=== PATIENT | female | born 1980 | race Caucasian/White ===

== ENCOUNTER 2018-08-22 12:31 | Emergency (ER) | payer OTHER ==
[2018-08-22 14:12] VITALS: BP 101/68
--- NOTE | 2018-08-22 14:41 | UC ---
Skin Complaint HPI - HPI Summary HPI Summary: 37-year-old woman comes in with a chief complaint of a tick bite to the right upper thoracic back. I week ago she felt something there and pulled it off and realized that it was a tick. The area is not healing very well she is wondering if it's a foreign body left in there. She is breast-feeding. No fevers or chills feels well otherwise. - History of Current Complaint Chief Complaint: UCSkin Time Seen by Provider: 08/22/18 14:27 Stated Complaint: TICK BITE Hx Last Menstrual Period: 05/03/12 Pain Intensity: 0 - Allergy/Home Medications Allergies/Adverse Reactions: Allergies Allergy/AdvReac Type Severity Reaction Status Date / Time nickel Allergy Rash And Verified 08/22/18 14:12 Itching Sulfa (Sulfonamide AdvReac Severe Stomach Verified 08/22/18 14:12 Antibiotics) Cramps PMH/Surg Hx/FS Hx/Imm Hx Previously Healthy: Yes - Surgical History Surgical History: Yes Surgery Procedure, Year, and Place: dental implant - Family History Known Family History: Positive: Non-Contributory - Social History Alcohol Use: None Substance Use Type: None Smoking Status (MU): Never Smoked Tobacco Have You Smoked in the Last Year: No - Immunization History Most Recent Influenza Vaccination: fall 2017 Most Recent Tetanus Shot: 07/07/15 Most Recent Pneumonia Vaccination: never Review of Systems All Other Systems Reviewed And Are Negative: Yes Constitutional: Positive: Negative Skin: Positive: Other - SEE HPI Eyes: Positive: Negative ENT: Positive: Negative Respiratory: Positive: Negative Cardiovascular: Positive: Negative Gastrointestinal: Positive: Negative Motor: Positive: Negative Neurovascular: Positive: Negative Musculoskeletal: Positive: Negative Neurological: Positive: Negative Psychological: Positive: Negative Is Patient Immunocompromised?: No Physical Exam Triage Information Reviewed: Yes Appearance: Well-Appearing, No Pain Distress, Well-Nourished Vital Signs: Initial Vital Signs Temp 98.2 F 08/22/18 14:09 Pulse 80 08/22/18 14:09 Resp 16 08/22/18 14:09 BP 101/68 08/22/18 14:09 Pulse Ox 97 08/22/18 14:09 Vital Signs Reviewed: Yes Eye Exam: Normal Eyes: Positive: Conjunctiva Clear Neck: Positive: Supple Respiratory: Positive: No respiratory distress Musculoskeletal Exam: Normal Musculoskeletal: Positive: Strength Intact, ROM Intact Neurological Exam: Normal Neurological: Positive: Alert, Muscle Tone Normal Psychological Exam: Normal Psychological: Positive: Age Appropriate Behavior Skin: Positive: Other - Right upper thoracic back; 1cm area of erythema. No FB seen. No Bulls Eye Rash. No drainage. Course/Dx - Course Course Of Treatment: On examination there is no bull's-eye rash. Is a small area of erythema. I did not see an obvious foreign body. The area is being slow to heal which may indicate there is still a tick parts left in the skin. Also the patient's been using Neosporin which could be causing some additional irritation. It also does not appear to be cellulitis at this time. Patient is not having any symptoms of Lyme disease. Patient believes the tick was in for less than 24 hours. Auralgan to do is stop the Neosporin start mupirocin. Overall we'll observe for any possible other signs of infection such as bull's-eye rash or cellulitis or any signs or symptoms of Lyme disease to help determine whether or not to treat with antibiotics. Patient is breast-feeding at this time which excludes the use of doxycycline. - Diagnoses Provider Diagnosis: Tick bite of back Discharge - Sign-Out/Discharge Documenting (check all that apply): Patient Departure All imaging exams completed and their final reports reviewed: No Studies - Discharge Plan Condition: Stable Disposition: HOME Prescriptions: Mupirocin 22 gm TP BID #22 gm Patient Education Materials: Tick Bite (ED) Referrals: Tatum Mahajan MD [Primary Care Provider] - Additional Instructions: FOLLOW UP WITH YOUR DOCTOR IF NOT COMPLETELY IMPROVED. GET RECHECKED SOONER IF YOUR CONDITION WORSENS; BULLS EYE RASH, INFECTION, SIGNS OF LYME DISEASE OR ANY QUESTIONS OR CONCERNS. - Billing Disposition and Condition Condition: STABLE Disposition: Home
== END 2018-08-22 14:48 | disposition home or self-care (01) ==
LOC: UCEAST 12:31
DX: S30.860A Insect bite (nonvenomous) of lower back and pelvis, initial encounter (principal); Z91.09 Other allergy status, other than to drugs and biological substances; W57.XXXA Bitten or stung by nonvenomous insect and other nonvenomous arthropods, initial encounter; Z88.2 Allergy status to sulfonamides
CPT/HCPCS: 99211; G0463